=== PATIENT | female | born 1980 | race Caucasian/White ===

== ENCOUNTER → 2020-07-31 09:15 | Outpatient (CLI) | payer OTHER, SELFPAY ==
--- NOTE | ~2020-07-31 | US_ITS ---
EXAMINATION: US pelvic complete DATE: 07/31/2020 09:46 INDICATION: Menometrorrhagia TECHNIQUE: Multiple transabdominal and endovaginal sonographic images of the pelvis were obtained. COMPARISON: None. FINDINGS: The uterus measures 9.8 x 4.8 x 5.9 cm. The endometrial complex measures 9 mm. The right ov faustino measures 2.1 x 3.0 x 2.6 cm. The left ovary measures 1.6 x 1.6 x 2.2 cm. There is normal vascular flow in the ovaries. There is no free fluid in the pelvis. IMPRESSION: 1. No sonographic correlate for the patient's symptoms. Reviewed, dictated and finalized at location A. RING PADS SUPERVISOR
== END ==
PROVIDERS: Visit Provider Nurse Practitioner
DX: N92.0 Excessive and frequent menstruation with regular cycle (principal)
CPT/HCPCS: 76856

== ENCOUNTER → 2020-12-17 06:40 | Outpatient (CLI) | payer OTHER, SELFPAY ==
[2020-12-17 19:22] LABS: SARS-CoV-2 RNA PCR Negative
== END ==
PROVIDERS: Visit Provider Obstetrics & Gynecology Gynecology
DX: Z01.812 Encounter for preprocedural laboratory examination (principal); Z20.822 Contact with and (suspected) exposure to COVID-19
CPT/HCPCS: C9803; U0003; U0005

== ENCOUNTER 2020-12-20 00:13 | Day surgery (SDC) | payer OTHER, SELFPAY ==
[2020-12-09 15:20] VITALS: BMI 27.3
--- NOTE | 2020-12-20 07:19 | PM.HPGS ---
History of Present Illness History of Present Illness Consent: Risks, benefits, and alternatives have been discussed and questions answered. Patient agrees to proceed with procedure. Chief complaint: menorrhaghia Narrative: Glenda Myers is a 40 year old female with new onset over the past year of heavy cycles. Patient states she uses super plus tampons and changes approximately every 2 hours for 24 hours per month. Patient underwent attempt at hysteroscopy in the office, however, the cervix was stenotic and unable to be entered. Patient is rescheduled for the operating room and has been given Cytotec for the prior 5 days. Risks of the procedure including infection, bleeding, and perforation are discussed with the patient. In addition possible pathology is reviewed. Patient voices understanding and agrees to proceed. Review of Systems Review of Systems: Narrative: not repeated day of surgery; patient states no changes in status Constitutional: Constitutional: Reports other (fatigue) Neurologic: Reports headache(s) PMFSH Past Medical History Medical History (Updated 12/20/20 @ 07:25 by Krystin Rendon MD) Asthma Surgical History Surgical History (Updated 12/20/20 @ 07:23 by Krystin Rendon MD) History of section, low transverse x 3 History of umbilical hernia repair x 2 Family History Family History (Updated 01/05/15 @ 11:02 by DOCTOR UNKNOWN) Grandparent Malignant neoplasm of prostate Diabetes mellitus Other Family history of arthritis Social History Social History Smoking status: Never smoker Alcohol intake: current Drinks per week: 2 Substance use: never Substance use type: does not use Living arrangements: with family Spiritual care concerns: No Meds Home Medications and Allergies Home Medications Medication Instructions Recorded Confirmed Type albuterol 90 mcg INHALATION Q6H PRN 12/09/20 12/09/20 History cefuroxime axetil [Ceftin] 500 mg PO BID 12/09/20 12/09/20 History ergocalciferol (vitamin D2) 1,250 mcg PO WEEKLY 12/09/20 12/09/20 History misoprostol 1,000 mcg PO DAILY 12/09/20 12/09/20 History multivitamin 1 tablet PO DAILY 12/09/20 12/09/20 History vitamin L16-[id number] acid 1 tablet PO DAILY 12/09/20 12/09/20 History Allergies Allergy/AdvReac Type Severity Reaction Status Date / Time chlorpheniramine AdvReac Nausea and Verified 12/09/20 15:36 [From Deconamine] Vomiting fexofenadine [From Ashly-D] AdvReac Nausea and Verified 12/09/20 15:36 Vomiting pseudoephedrine AdvReac Nausea and Verified 12/09/20 15:36 [From Ashly-D] Vomiting Exam Const: General: comfortable and no acute distress : External Female Exam: normal external appearance Speculum Exam - Vagina: normal appearance of the vagina Speculum Exam - Cervix: normal appearance of the cervix and Other cervical findings present (cervix stenotic) Bimanual exam- vagina & uterus: enlarged (8-10 wks) Bimanual Exam- Adnexa, other: normal adnexae Assessment and Plan Assessment and plan (1) Menorrhagia: Code(s): N92.0 - Excessive and frequent menstruation with regular cycle Status: Acute Assessment and Plan: Plan to proceed with hysteroscopy with D&C
--- NOTE | 2020-12-20 07:25 | WPDHPUPDATE1 ---
History and Physical Update Update Date/Time: 12/20/20 07:25 History and Physical has been reviewed, including an updated exam of the patient. There are NO changes in the patient's condition. Risks, benefits, and alternatives have been discussed and questions answered. Patient agrees to proceed with procedure.
[2020-12-20] MEDS: ACETAMINOPHEN 500 MG TABLET 1000 MG PO (07:50)
--- NOTE | 2020-12-20 07:53 | WPDANESEPPF ---
Anes - Initial Pre Proc Eval Procedure: Operation Date: 12/20/20 09:30 Proposed Procedures p Hysteroscopy, Dilation and Curettage - Krystin Rendon MD Date/Time: 12/20/20 07:53 Surgeon: Krystin Rendon MD Pre Op Diagnosis: menorrhaghia Patient Data Age: 40 Gender: F Height: 1.57 m Weight: 68 kg Allergies Allergy/AdvReac Type Severity Reaction Status Date / Time chlorpheniramine AdvReac Nausea and Verified 12/20/20 07:36 [From Deconamine] Vomiting fexofenadine [From Ashly-D] AdvReac Nausea and Verified 12/20/20 07:36 Vomiting pseudoephedrine AdvReac Nausea and Verified 12/20/20 07:36 [From Ashly-D] Vomiting Home Medications Medication Instructions Recorded Confirmed Type albuterol 90 mcg INHALATION Q6H PRN 12/09/20 12/20/20 History cefuroxime axetil [Ceftin] 500 mg PO BID 12/09/20 12/20/20 History ergocalciferol (vitamin D2) 1,250 mcg PO WEEKLY 12/09/20 12/20/20 History misoprostol 1,000 mcg PO DAILY 12/09/20 12/20/20 History multivitamin 1 tablet PO DAILY 12/09/20 12/20/20 History vitamin Z40-[id number] acid 1 tablet PO DAILY 12/09/20 12/20/20 History Patient hx anesthesia problems: none Family hx anesthesia problems: none PMFSH Past Medical History Medical History (Updated 12/20/20 @ 07:54 by Ambrose Lozano DO) Asthma PONV (postoperative nausea and vomiting) Surgical History Surgical History (Updated 12/20/20 @ 07:54 by Ambrose Lozano DO) History of section, low transverse x 3 History of tubal ligation History of umbilical hernia repair x 2 Family History Family History (Updated 01/05/15 @ 11:02 by DOCTOR UNKNOWN) Grandparent Malignant neoplasm of prostate Diabetes mellitus Other Family history of arthritis Social History Social History Smoking status: Never smoker Alcohol intake: current Drinks per week: 2 Substance use: never Substance use type: does not use Living arrangements: with family Spiritual care concerns: No Anes - Eval Final PreProcedure Day of Procedure 12/20/20 07:53 Patient weight: overweight Heart: regular rate and rhythm Lungs: clear to auscultation and normal air movement Airway: Mallampati scale class 1 Neurological: alert and oriented Last oral intake: >/= 8 hours ASA classification: II Emergent: no Anesthetic plan: proceed Anesthesia type and monitoring: general GIVS and standard monitoring Informed Consent: The patient's anesthetic plan and its attendant risks and benefits were discussed with the patient/family/POA. Questions were solicited and answers provided to the satisfaction of the patient/family/POA.
[2020-12-20 07:57] VITALS: BP 107/65; PULSE 64; RESP 16; TEMP 36.6; O2SAT 100; BMI 27.0
[2020-12-20] MEDS: LACTATED RINGERS 1,000 ML 30 ML IV CONT (08:15)
--- NOTE | 2020-12-20 09:28 | PM.PROC ---
Procedure Note - Detailed Date of procedure: 12/20/20 Pre-op diagnosis: menorrhaghia Cervical stenosis Post-op diagnosis: same Procedure performed: Hysteroscopy D&C Description of procedure: The patient was taken to the operating room placed under anesthesia in the dorsal lithotomy position. She was prepped and draped in the usual sterile fashion. [place] speculum was placed in the vagina and the cervix is grasped on the anterior lip with a tenaculum. The cervix was injected with 1% lidocaine in each quadrant. The sound is attempted to be placed and stops at 5cm. The os Finders are used to open the internal os. The cervix was then serially dilated with Hegars and the uterus sounds to 9cm. The diagnostic hysteroscope was placed with no abnormalities noted. The medium sharp curette is used to sharply curette the endometrium until a good uterine cry was noted in all areas. Sponge, needle, and instrument counts are correct per the OR staff. All instruments are removed and the patient is taken to recovery in stable condition. Anesthesia: MAC and local Surgeon: Krystin Rendon MD Estimated blood loss (mL): 5 Drains: No Packing: No Pathology: yes (endometrial curettings) Complications: No immediate complications Condition: stable Disposition: PACU Findings: Stenotic internal cervical os; grossly normal-appearing endometrium; uterus sounds to 9cm
[2020-12-20 09:32] VITALS: BP 103/62; PULSE 76; RESP 16; O2SAT 100
[2020-12-20] MEDS: KETOROLAC 30 MG/ML VIAL (*BKC) IV PUSH (09:42)
[2020-12-20 10:00] VITALS: BP 122/73; PULSE 60; RESP 16
[2020-12-20 10:30] VITALS: BP 124/75; PULSE 57; RESP 20
== END 2020-12-20 10:40 | disposition home or self-care (01) ==
PROVIDERS: Visit Provider Obstetrics & Gynecology Gynecology
PROC: 0U5B8ZZ Destruction of Endometrium, Via Natural or Artificial Opening Endoscopic (ICD-10-PCS; CPT 58563; principal; 2020-12-20 09:30)
DX: N92.0 Excessive and frequent menstruation with regular cycle (principal); N88.2 Stricture and stenosis of cervix uteri; J45.909 Unspecified asthma, uncomplicated; Z79.51 Long term (current) use of inhaled steroids
CPT/HCPCS: 58558; 88305; A9270; C9803; J1885; J2250; J2704; J3010; J7030; J7120; U0003; U0005

== ENCOUNTER → 2021-04-25 15:04 | Outpatient (CLI) | payer OTHER, SELFPAY ==
--- NOTE | ~2021-04-25 | MM_ITS ---
EXAMINATION: MM screening yusra BI w david HISTORY: Screening TECHNIQUE: Craniocaudal and mediolateral oblique 3-D tomosynthesis images were obtained and synthetic 2-D images were generated. CAD analysis was submitted and interpreted. COMPARISON: No prior mammogram is available for comparison at this institution. BREAST PARENCHYMAL COMPOSITION: The breasts are extremely dense, which lowers the sensitivity of mamm ography. FINDINGS: There are asymmetries in the lower outer quadrant of the right breast. There are no suspici ous masses, calcifications or architectural distortion in the left breast to suggest malignancy. IMPRESSION: 1. Right breast asymmetries, lower outer quadrant. 2. Additional mammographic views and possible breast ultrasound are recommended. BI-RADS Category 0: Incomplete: Needs additional imaging evaluation. Reviewed, dictated and finalized at location A. IMPRESSION: 1. Right breast asymmetries, lower outer quadrant. 2. Additional mammographic views and possible breast ultrasound are recommended . BI-RADS Category 0: Incomplete: Needs additional imaging evaluation.
== END ==
PROVIDERS: Visit Provider Nurse Practitioner
DX: Z12.31 Encounter for screening mammogram for malignant neoplasm of breast (principal); R92.8 Other abnormal and inconclusive findings on diagnostic imaging of breast
CPT/HCPCS: 77063; 77067

== ENCOUNTER → 2021-06-09 09:00 | Outpatient (CLI) | payer OTHER, SELFPAY ==
--- NOTE | ~2021-06-09 | MMUS_ITS ---
EXAMINATION: MM diagnostic yusra RT w david, US breast RT complete HISTORY: Right breast asymmetries reported on 04/25/2021 screening mammogram TECHNIQUE: Additional 3-D tomosynthesis images of the right breast were performed and synthetic 2-D i mages were generated. CAD analysis was submitted and interpreted. High resolution complete right guilher[address] st ultrasound was performed, including all 4 quadrants and subareolar area of. COMPARISON: 04/25/2021 bilateral screening mammogram FINDINGS: MAMMOGRAPHIC FINDINGS: 7 mm circumscribed mass is suggested at mid to posterior depth in the inner aspect of the mid medial right breast (ML spot Tomosynthesis image 37/59, MLO Tomosynthesis image 36/62). Otherwise no suspici ous mass, architectural distortion, malignant calcification, skin thickening or retraction is evident . ULTRASOUND: No suspicious mass or solid lesion is detected. 4:00 4 cm from nipple: 1.8 x 3.2 mm cyst 6:00 6 cm from nipple: 2.7 x 5 mm simple cyst with through transmission and posterior enhancement and 3.8 x 1.4 mm simple cyst 9:00 7 cm from nipple: 7 x 5.6 x 9.4 mm sonolucency with through transmission posterior enhancement c onsistent with simple cyst 9:00 6 cm from nipple: Circumscribed 5 x 3.4 mm sonolucency with through transmission posterior enhan cement consistent with cyst 10:00 7 cm from nipple: 4.6 x 3.3 cm circumscribed hypoechoic lesion with through transmission crime scene specialist ior enhancement, consistent with cyst IMPRESSION: 1. Benign findings; no mammographic evidence of malignancy 2. Routine annual mammographic screening is recommended BI-RADS Category 2: Benign finding(s). Reviewed, dictated and finalized at location A. ALE SECURITY OFFICER IMPRESSION: 1. Benign findings; no mammographic evidence of malignancy 2. Routine annual mammographic screening is recommended BI-RADS Category 2: Benign finding(s).
== END ==
PROVIDERS: Visit Provider Obstetrics & Gynecology Gynecology
DX: R92.8 Other abnormal and inconclusive findings on diagnostic imaging of breast (principal)
CPT/HCPCS: 76641; 77061; 77065; G0279

== ENCOUNTER → 2022-06-09 10:08 | Outpatient (CLI) | payer OTHER, SELFPAY ==
--- NOTE | ~2022-06-09 | MM_ITS ---
EXAMINATION: MM screening yusra BI w david HISTORY: Screening mammogram TECHNIQUE: Craniocaudal and mediolateral oblique 3-D tomosynthesis images were obtained and synthetic 2-D images were generated. CAD analysis was submitted and interpreted. COMPARISON: 06/09/2021 diagnostic right mammogram and right breast ultrasound 04/25/2021 bilateral screening mammogram BREAST PARENCHYMAL COMPOSITION: The breasts are heterogeneously dense, which may obscure small masses . FINDINGS: Possible new bilateral breast masses are suggested. IMPRESSION: 1. Possible new breast masses 2. Diagnostic bilateral mammogram and bilateral breast ultrasound examination are recommended BI-RADS Category 0: Incomplete: Needs additional imaging evaluation. Reviewed, dictated and finalized at location A. ECTIONS OFFICER IMPRESSION: 1. Possible new breast masses 2. Diagnostic bilateral mammogram and bilateral breast ultrasound examination a re recommended BI-RADS Category 0: Incomplete: Needs additional imaging evaluation.
== END ==
PROVIDERS: PCP Obstetrics & Gynecology Gynecology; Visit Provider Obstetrics & Gynecology Gynecology
DX: Z12.31 Encounter for screening mammogram for malignant neoplasm of breast (principal); R92.8 Other abnormal and inconclusive findings on diagnostic imaging of breast
CPT/HCPCS: 77063; 77067

== ENCOUNTER → 2022-07-03 09:24 | Outpatient (CLI) | payer OTHER, SELFPAY ==
--- NOTE | ~2022-07-03 | MMUS_ITS ---
EXAMINATION: MM diagnostic yusra BI w david, US breast BI limited HISTORY: Possible bilateral breast masses on screening mammogram TECHNIQUE: Additional 3-D tomosynthesis images of the breasts were performed and synthetic 2-D images were generated. CAD analysis was submitted and interpreted. High resolution limited bilateral breast ultrasound was performed. COMPARISON: 06/09/2022, 06/09/2021, 04/25/2021 FINDINGS: MAMMOGRAPHIC FINDINGS: Left breast: An asymmetry persists in the posterior third outer breast on the craniocaudal view with spot compression. Right breast: There is a return to baseline fibroglandular appearance with spot compression of the ri ght breast in the area questioned on screening mammogram. ULTRASOUND: Left breast: There is a 5 mm oval, hypoechoic, circumscribed mass with no posterior features or inter nal vascularity at the 11:00 location 6 cm from the nipple. There is a 13 mm x 4 mm circumscribed, ov al complex cystic and solid mass with posterior acoustic enhancement and no internal vascularity at t he 11:00 location 6 cm from the nipple. Right breast: There is a 7 mm x 3 mm oval, circumscribed, parallel, complex cystic and solid mass at the 4:00 location 5 cm from the nipple with no posterior features or internal vascularity. There is a 4 mm x 3 mm oval, circumscribed, parallel, hypoechoic mass with no posterior features or internal va scularity at the 6:00 location near the nipple. IMPRESSION: 1. Probably benign bilateral breast masses. 2. Recommend 6 month follow-up bilateral diagnostic mammogram and ultrasound. BI-RADS category 3, probably benign findings. Reviewed, dictated and finalized at location A. OPERATIONS CONTROLLER IMPRESSION: 1. Probably benign bilateral breast masses. 2. Recommend 6 month follow-up bilateral diagnostic mammogram and ultrasound. BI-RADS category 3, probably benign findings.
== END ==
PROVIDERS: PCP Obstetrics & Gynecology Gynecology; Visit Provider Obstetrics & Gynecology Gynecology
DX: R92.8 Other abnormal and inconclusive findings on diagnostic imaging of breast (principal)
CPT/HCPCS: 76642; 77062; 77066; G0279

== ENCOUNTER → 2023-01-01 09:31 | Outpatient (CLI) | payer OTHER, SELFPAY ==
--- NOTE | ~2023-01-01 | MMUS_ITS ---
EXAMINATION: MM diagnostic yusra BI w david, US breast BI complete HISTORY: Follow-up probable benign bilateral breast masses. TECHNIQUE: Additional 3-D tomosynthesis images of the breasts were performed and synthetic 2-D images were generated. CAD analysis was submitted and interpreted. High resolution complete bilateral breas t ultrasound was performed. COMPARISON: Comparison to multiple prior studies sequentially, with oldest reviewed study dated 04/25. BREAST PARENCHYMAL COMPOSITION: The breasts are heterogeneously dense, which may obscure small masses FINDINGS: MAMMOGRAPHIC FINDINGS: Bilateral breast asymmetries and calcifications are stable compared with prior examinations allowing for differences of technique. There are benign layering left breast calcifications superiorly, consis tent with milk of calcium. ULTRASOUND: Complete bilateral US of all 4 quadrants of the breasts and retroareolar region was reviewed. Right breast: There are multiple simple and complicated cysts of the both breasts. In the right breas t at 1-2:00, 4 cm from the nipple there is a 6 mm oval hypoechoic mass with internal echogenic hilum, possibly intramammary lymph node. There is an adjacent simple cyst. Left breast: At 12:00, 4 cm from the nipple there is a lobulated hypoechoic mass with parallel orient ation, coarse internal echotexture, no significant posterior features and no internal vascularity han suring 9 x 6 x 9 mm. This was not seen on prior examination. At 3:00, 5 cm from the nipple there is a n oval hypoechoic mass with low level internal echoes measuring 7 x 5 x 7 mm without internal vascula rity or posterior features. There are internal echogenic foci, possibly calcifications. There are mul tiple simple and complicated cysts of the left breast. At 5:00, 5 cm from the nipple there is a 9 mm oval hypoechoic mass with low level internal echoes, no posterior features and no internal vascularit y, likely complicated cysts. There are multiple clusters of cysts in the left breast. IMPRESSION: 1. Abnormal masses of the left breast at 12:00, 4 cm from the nipple measuring 9 mm and 3:00, 5 cm fr om the nipple measuring 7 mm. Ultrasound-guided left breast biopsies recommended. BI-RADS Category 4. 2. Probable benign bilateral breast masses identified by ultrasound. Six-month follow-up diagnostic b ilateral mammogram and ultrasound recommended. Reviewed, dictated and finalized at location A. IMPRESSION: 1. Abnormal masses of the left breast at 12:00, 4 cm from the nipple measuring 9 mm and 3:00, 5 cm from the nipple measuring 7 mm. Ultrasound-guided left guilherme st biopsies recommended. BI-RADS Category 4. 2. Probable benign bilateral breast masses identified by ultrasound. Six-month follow-up diagnostic bilateral mammogram and ultrasound recommended.
== END ==
PROVIDERS: PCP Obstetrics & Gynecology Gynecology; Visit Provider Obstetrics & Gynecology Gynecology
DX: N63.10 Unspecified lump in the right breast, unspecified quadrant (principal); N63.20 Unspecified lump in the left breast, unspecified quadrant; R92.8 Other abnormal and inconclusive findings on diagnostic imaging of breast
CPT/HCPCS: 76641; 77062; 77066; G0279

== ENCOUNTER 2024-12-29 01:17 | Day surgery (SDC) | payer OTHER, SELFPAY ==
[2024-12-23 13:56] VITALS: BMI 29.0
--- NOTE | 2024-12-23 14:03 | PC.NURSE ---
Report to the Outpatient Waiting Room, entrance under the green pavilion located off [facility], at time _0830 on date _12/29/24__. Planned Procedure Time: _1030_.? Time changes happen often and if your time is changed the preop area will call you the afternoon before. - You and your visitor will be asked to self-screen and do not enter if you have any COVID symptoms. Please call surgeon if you need to reschedule. - A mask is optional within the hospital at this time. Patients may have clear liquids (water, carbonated beverages, clear teas, apple juice) until 3 hours prior to surgery with a maximum of 20 ounces. - No food from midnight until time of surgery and no smoking, or chewing tobacco (or any form of nicotine). No chewing gum, candy or mints. - Infants may have breast milk until 4 hours before surgery, infant formula 6 hours prior to surgery. - Children will be allowed to drink immediately following surgery.? If applicable, please bring a bottle or sippy cup to assist with drinking. Juice, water, soda, and popsicles are readily available.? For infants on formula, please bring formula the day of surgery.? Pacifiers are allowed. Take only the following medications with a SIP of water on the morning of surgery: NONE DO NOT STOP ANY OF YOUR OTHER PRESCRIPTION MEDICATIONS PRIOR TO SURGERY EXCEPT THE FOLLOWING Hold all vitamins and supplements for 3 days per anesthesiologist. Medications to discontinue per physician Date to take last dose Please no make-up, nail german, hairspray, perfume, deodorant, or body powder the day of surgery.? No jewelry (including any body piercings) or valuables the day of surgery, leave them at home.? Please take a shower or bath the night before, or the morning of, surgery with an antibacterial soap.? Wear comfortable, loose fitting clothing.? Children are encouraged to wear pajamas. - Jewelry must be removed prior to entering the operating room.? Rings and piercings that are not removed may be cut off. - The hospital will not accept responsibility for valuables.? - Please leave all valuables, including medications, at home the day of surgery. If you are going home after surgery, a licensed commercial truck driver must drive you home.? - NO public transportation without another adult if you receive anesthesia. - We recommend that an adult stay with you for 24 hours following discharge. - We also recommend that you do not drive, make important decision, drink alcoholic beverages, or take any drugs that were not prescribed by your health care provider for at least 24 hours after your discharge time. For Pediatric surgeries, we recommend two adults accompany the child home. Follow any additional instructions given to you from your surgeon. Telephone instructions given to NADIRand asked if any additional questions and then verbalized understanding. Patient advised to call surgeon office or pre surgery nurse liaison [phone] if any additional questions.
--- OUTSIDE RECORDS SUMMARY | 2024-12-29 01:21 | XMS_ITS | Referral Summary ---
Author Organization [address] Address [address] [place] [id number] Care Team Providers Care Burner Shaft Name Role Phone Delroy Lambert MD Primary Care Provider [phone] Krystin Rendon MD Unavailable [phone] Allergies Active Allergy Reactions Criticality Noted Date Comments Fexofenadine Vomiting Low 08/11/2018 Amoxicillin-Pot Clavulanate Vomiting Low 03/01/20 22 Medications FA/mv,Ca,iron,mi n/lycopene/lut (MULTIVITAL ORAL) Take by mouth Active azelaic acid 15 % gel APPLY TO TO THE AFFECTED AREA OF FACE EVERY DAY 2 Active FLUoxetine 10 mg capsule Take 1 tablet/capsule (10 mg total) by mouth daily 4 Active oxyBUTYnin (DITROPAN) 5 mg tablet Take 1 tablet (5 mg total) by mouth daily 4 Active triamcinolone (KENALOG) 0.1 % creamIndications :Contact dermatitis due to plant Apply topically 3 (three) times a day for 10 days 80 g 4 Active albuterol HFA (PROVENTIL HFA,VENTOLIN HFA,PROAIR HFA) 90 mcg/actuation inhalerIndicatio ns:Mild intermittent asthma with acute exacerbation INHALE 2 PUFFS BY MOUTH EVERY 6 HOURS NEEDED FOR WHEEZING 20.1 g 4 Active montelukast (SINGULAIR) 10 mg tablet Take 1 tablet (10 mg total) by mouth nightly 30 tablet 1 4 Active inhalational spacing device (Aerochamber Plus Z Stat) spacer 1 Application every 6 (six) hours Use as directed 1 each 5 Active fluticasone propionate (FLONASE) 50 mcg/actuation nasal spray Administer 2 sprays into each nostril daily 3 each 4 5 Active fluticasone propion-salmeter oL (ADVAIR DISKUS) 100-50 mcg/dose diskus inhaler INHALE 1 PUFF BY MOUTH TWICE DAILY. RINSE MOUTH WITH WATER AFTER USE. 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): 5 days of severe abdominal pain and diarrhea; 09/16-09/21 Negative stool culture and Cdiff screen Symptoms have resolved Follow up if symptoms return Patient verbalized understanding Mild intermittent asthma with acute exacerbation 01/02/2023 Assessment & Plan (01/14/2024 4:21 PM CDT): Well controlled, occasionally use of albuterol and spring; no other need for medications Assessment & Plan (01/02/2023 4:05 PM CDT): Stable, well controlled; few episodes, most related to allergies and exposure to pollens and allergens Continue albuterol 2 puffs b.i.d., loratadine 10 mg daily Dyslipidemia 01/02/2023 Assessment & Plan (01/14/2024 4:21 PM CDT): Stable, well controlled; focusing on dietary changes, increasing fiber of diet Assessment & Plan (01/02/2023 4:06 PM CDT): Family history of elevated cholesterol levels and mother brother; father has stent in place Patient had blood work from outside source; demonstrating borderline high LDL cholesterol Discussed with patient no need for statin therapy at this time, but would recommend continue dietary changes, including addition of soluble fibers to help lower cholesterol levels Will continue to monitor, and re-evaluate risk determine patient benefit from statin therapy in future Immunizations Immunization Administration Dates Next Due Influenza, Quadrivalent, Heather l Culture-based MDCK, Antibiotic Free, Intramuscular 05/12/2019 Influenza, Quadrivalent, Heather l Culture-based MDCK, Preservative Free, Antibiotic Free, Intramuscular 06/04/2022 Influenza, Quadrivalent, Spl it, Preservative Free, Intramuscular 09/28/2023,06/10/2021 Influenza, Trivalent, IM (MDV) 06/08/2014,2012,06/14/2013 Influenza, Trivalent, Preser vative Free, Intramuscular 08/05/2016,08/15/2012 Influenza, Unspecified 05/12/2024(Deferr ed: Patient Refused),05/07/2023(Deferred: Patient Refused) Pneumococcal Conjugate Pcv20 09/28/2023 Tdap 06/18/2013 Social History Tobacco Use Types Packs/Day Years Used Date Smoking Tobacco: Never Smokeless Tobacco: Never Tobacco Cessation:Counseling Given: Not Answered [facility] [employer]ities Answer Date Recorded In the past 12 months has e [employer], oil, or water [employer] threatened to shut off services in your home? No 09/28/2023 Humiliation, Afraid, Rape, and Kick questionnair e Answer Date Recorded Within the last year, have y ou been afraid of your partner or ex-partner? No 09/28/2023 Within the last year, have y ou been humiliated or emotionally abused in other ways by your partner or ex-partner? No Within the last year, have y ou been kicked, hit, slapped, or otherwise physically hurt by your partner or ex-partner? No 09/28/2023 Within the last year, have y ou been raped or forced to have any kind of sexual activity by your partner or ex-partner? No 09/28/2023 Social Connection and Isolat ion Panel [NHANES] Answer Date Recorded In a typical week, how many times do you talk on the phone with family, friends, or neighbors? More than three times a week 09/28/2023 How often do you get togethe r with friends or relatives? More than three times a week 09/28/2023 How often do you attend chur ch or yarsani services? Never 09/28/2023 Do you belong to any clubs o r organizations such as muslim groups, unions, fraternal or athletic groups, or school groups? Yes 09/28/2023 How often do you attend meet ings of the clubs or organizations you belong to? Never 09/28/2023 Are you , , di vorced, , never , or living with a partner? 09/28/2023 AUDIT-C Answer Date Recorded Q1: How often do you have a drink containing alc ohol? 2-4 times a month 09/28/2023 Q2: How many drinks containi ng alcohol do you have on a typical day when you are drinking? 3 or 4 09/28/2023 Q3: How often do you have si x or more drinks on one occasion? Less than monthly 09/28/2023 Overall Financial Resource Strain (CARDIA) Answe r Date Recorded How hard is it for you to pa y for the very basics like food, housing, medical care, and heating? Not hard at all 09/28/2023 PHQ-2 Answer Date Recorded PHQ-2 Total Score (If total score is 3 or more points, staff should administer the PHQ-9) 0 09/28/2023 [facility] - Occupational Stress Questionnaire Answer Date Recorded Do you feel stress - tense, restless, nervous, or anxious, or unable to sleep at night because your mind is troubled all the time - these days? To some extent 09/28/2023 Exercise Vital Sign Answer Date Recorde d On average, how many days pe r week do you engage in moderate to strenuous exercise (like a brisk walk)? 5 days 09/28/2023 On average, how many minutes do you engage in exercise at this level? 60 min 09/28/2023 Hunger Vital Sign Answer Date Recorded Within the past 12 months, y ou worried that your food would run out before you got the money to buy more. Never true 09/28/19 24 Within the past 12 months, t he food you bought just didn't last and you didn't have money to get more. Never true 09/28/2023 PRAPARE - Transportation Answer Date Re corded In the past 12 months, has l ack of transportation kept you from medical appointments or from getting medications? No 07/2023 In the past 12 months, has l ack of transportation kept you from meetings, work, or from getting things needed for daily living? No 09/28/2023 Housing Stability Vital Sign Answer Ralf e Recorded In the last 12 months, was t here a time when you were not able to pay the mortgage or rent on time? No 09/28/2023 In the last 12 months, how many places have you lived? 1 09/28/2023 In the last 12 months, was t here a time when you did not have a steady place to sleep or slept in a [place] [facility] [place] (including now)? No 09/28/2023 Personal Safety Answer Date Recorded Have you ever been in or are you currently in a harmful physical or emotional relationship or is someone making you feel afraid or unsafe? Denies 09/17/2023 Comments No Sex and Gender Information Value Date Recorded Sex Assigned at Not on file Legal Sex Female 5:24 PM HEEL PAINTER Gender Identity Not on file Sexual Orientation Not on file Last Filed Vital Signs Vital Sign Reading Time Taken Comments Blood Pressure 114/66 09/22/2024 3:39 PM HEEL PAINTER Pulse 75 09/22/2024 3:39 PM HEEL PAINTER Temperature 36.4 C (97.6 F) 09/22/2024 3:39 PM HEEL PAINTER Respiratory Rate 18 09/22/2024 3:39 PM HEEL PAINTER Oxygen Saturation 99% 09/22/2024 3:39 PM HEEL PAINTER Inhaled Oxygen Concentration - - Weight 72.1 kg (159 lb) 09/22/2024 3:39 PM HEEL PAINTER Height 157.5 cm (5' 2) 09/22/2024 3:39 PM HEEL PAINTER Body Mass Index 29.08 09/22/2024 3:39 PM HEEL PAINTER Plan of Treatment Not on file Procedures Procedure Name Priority Date/Time Associated Diagnosis Comments DIAGNOSTIC MAMMOGRAM BILATERAL W GIRISH Schedule Routine, Read Routine (OP Routine) 03/07/2024 2:52 PM CDT Abnormal mammogram Mass of left breast, unspecified quadrant HEPATITIS C ANTIBODY Routine 01/03/2024 10:41 AM CDT Encounter for hepatitis C screening test for low risk patient PAP SMEAR Routine 10/10/2022 from Last 3 Months or Most Recently Relevant to Health Maintenance Results * Diagnostic Mammogram Bilateral W Girish (03/07/2024 2:52 PM CDT) Anatomical Region Laterality Modality Breast Bilateral Mammography 03/07/2024 3:54 PM CDT Impressions 03/07/2024 3:54 PM CDT 1. Stable probably benign cluster of cysts in the left breast at the 12 o'clock position 4 cm from the nipple. Recommend follow-up ultrasound in 12 months at which the patient will be due for their annual mammogram. 2. No new suspicious mammographic abnormality in either breast. These findings were discussed with the patient by Dr. Lupillo Jennings and Dr. Krystin Coombs. OVERALL FINAL ASSESSMENT: BI-RADS Category 3: Probably Benign. RECOMMENDATION: Recommend follow-up diagnostic breast imaging in 12 months with left breast ultrasound at which time the patient will be due for their annual mammogram. Dictated by: Lupillo Jennings MD The radiology attending physician has personally reviewed this study, and had reviewed and/or edited this written report and agrees with it. Electronically signed by: Krystin Coombs M.D. Narrative 03/07/2024 3:54 PM CDT EXAMINATION: BILATERAL DIGITAL DIAGNOSTIC MAMMOGRAM INCLUDING CAD AND BILATERAL DIGITAL BREAST TOMOSYNTHESIS; LEFT BREAST SONOGRAM HISTORY: 44-year-old woman who presents for 12 month follow-up of a category 3 mass in the left breast at the 12 o'clock position. COMPARISON: Prior left breast ultrasound 08/10/2023 and outside hospital left breast ultrasound 01/16/2023. Several prior mammograms, most recently 01/01/2023, dating back to 06/09/2021. TECHNIQUE: Full field digital mammographic views of BOTH breasts were performed, including computer aided detection (CAD) and BILATERAL digital breast tomosynthesis (DBT). Directed ultrasound evaluation of the LEFT breast was performed. BREAST PARENCHYMAL COMPOSITION: The breasts are heterogeneously dense, which may obscure small masses. MAMMOGRAM FINDINGS: There is no new suspicious abnormality in either breast. SONOGRAM FINDINGS: Targeted sonogram was performed at the 12 o'clock position of the left breast 4 cm from nipple. This revealed a stable anechoic to hypoechoic mass with measuring 1.3 x 1.0 x 0.5 cm, possibly representing a cluster of cysts. This is stable in size compared to prior study when accounting for differences in measurement technique. There is no internal vascularity. There is a stable small cyst anteriorly. Procedure Note Krystin Coombs MD - 03/07/2024 EXAMINATION: BILATERAL DIGITAL DIAGNOSTIC MAMMOGRAM INCLUDING CAD AND BILATERAL DIGITAL BREAST TOMOSYNTHESIS; LEFT BREAST SONOGRAM HISTORY: 44-year-old woman who presents for 12 month follow-up of a category 3 mass in the left breast at the 12 o'clock position. COMPARISON: Prior left breast ultrasound 08/10/2023 and outside hospital left breast ultrasound 01/16/2023. Several prior mammograms, most recently 01/01/2023, dating back to 06/09/2021. TECHNIQUE: Full field digital mammographic views of BOTH breasts were performed, including computer aided detection (CAD) and BILATERAL digital breast tomosynthesis (DBT). Directed ultrasound evaluation of the LEFT breast was performed. BREAST PARENCHYMAL COMPOSITION: The breasts are heterogeneously dense, which may obscure small masses. MAMMOGRAM FINDINGS: There is no new suspicious abnormality in either breast. SONOGRAM FINDINGS: Targeted sonogram was performed at the 12 o'clock position of the left breast 4 cm from nipple. This revealed a stable anechoic to hypoechoic mass with measuring 1.3 x 1.0 x 0.5 cm, possibly representing a cluster of cysts. This is stable in size compared to prior study when accounting for differences in measurement technique. There is no internal vascularity. There is a stable small cyst anteriorly. IMPRESSION: 1. Stable probably benign cluster of cysts in the left breast at the 12 o'clock position 4 cm from the nipple. Recommend follow-up ultrasound in 12 months at which the patient will be due for their annual mammogram. 2. No new suspicious mammographic abnormality in either breast. These findings were discussed with the patient by Dr. Lupillo Jennings and Dr. Krystin Coombs. OVERALL FINAL ASSESSMENT: BI-RADS Category 3: Probably Benign. RECOMMENDATION: Recommend follow-up diagnostic breast imaging in 12 months with left breast ultrasound at which time the patient will be due for their annual mammogram. Dictated by: Lupillo Jennings MD The radiology attending physician has personally reviewed this study, and had reviewed and/or edited this written report and agrees with it. Electronically signed by: Krystin Coombs M.D. Laura Wagoner NP IMG MAMMO PROCEDURES Final Result * Hepatitis C antibody Blood (01/03/2024 10:41 AM CDT) Hep C Ab Nonreactive Nonreactive Comment: Interpretive Data Nonreactive: Antibodies to HCV not detected. Does NOT exclude the possibility of recent exposure to HCV. Equivocal: Equivocal for HCV antibodies. Supplemental molecular testing will be automatically performed to determine infection status in accordance with current CDC screening recommendations. Reactive: Positive for HCV antibodies. This may represent current or past HCV infection. Supplemental molecular testing will be automatically performed to determine current infection status in accordance with current CDC screening recommendations. Interpretive data was last revised on 2019. Testing performed by: [facility], [address] [place] [address]., [id number] Blood 01/03/2024 10:4 1 AM CDT 01/03/2024 5:46 PM CDT Delroy Lambert MD LAB MICROBIOLOGY - GENERA L ORDERABLES Final Result Performing Organization Address City/State/RUST Co de Phone Number [facility] [place] [facility] Department of Laboratories [place], [place] [id number] * Pap Smear (10/10/2022) 10/10/2022 Historical Provider LAB PATHOLOGY ORDERABLES Final Result from Last 3 Months or Most Recently Relevant to Health Maintenance Insurance [employer] CHOICE PLUS [facility] HMO/PPO Address: [address] [place] [address] [facility]/PP[facility] Address: [address] [address] [place] [address] [facility]/PP[facility] Address: [address] [address] [place] [id number] Care Teams Burner Shaft Relationship Specialty Start Date End Date Delroy Lambert MD [address] [place] [address] PCP - General Family Medicine 01/02/23 Krystin Rendon MD [address] [address] Referring Physician Gynecology 01/03/23
--- OUTSIDE RECORDS SUMMARY | 2024-12-29 01:21 | XMS_ITS | Clinical Summary ---
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): 5 days of severe abdominal pain and [...] Refused) Pneumococcal Conjugate Pcv20 09/28/2023 Tdap 06/18/2013 Surgical History Surgery Date Site/Laterality Comments SECTION BUNIONECTOMY HERNIA REPAIR umbilical hernia repair Medical History Medical History Date Comments Asthma Allergic Family History Medical History Relation Name Comments Hyperlipidemia Brother Hypertension Brother Coronary artery disease Father sten t placed 2022 Prostate cancer Maternal Grandfather Hyperlipidemia Mother Diabetes Paternal Grandmother Hyperlipidemia Paternal Grandmother Hypertension Paternal Grandmother Relation Name Status Comments Brother Father Maternal Grandfather Mother Paternal Grandmother Social History Tobacco Use Types Packs/Day Years Used Date Smoking Tobacco: Never Smokeless Tobacco: Never Tobacco Cessation:Counseling Given: Not Answered [facility] Utilities Answer Date Recorded In the past 12 months has e [employer], oil, or water [employer] threatened to shut off services in your [...] often do you attend chur ch or jain services? Never 09/28/2023 Do you belong to any clubs o r organizations such as denominational groups, unions, fraternal or athletic groups, or [...] staff should administer the PHQ-9) 0 09/28/2023 [facility] - Occupational Stress Questionnaire Answer Date Recorded [...] place to sleep or slept in a alf (including now)? No 09/28/2023 Personal Safety Answer Date Recorded Have you ever been in or are you currently in a harmful physical or emotional relationship or is someone making you feel afraid or unsafe? 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 Gender Identity Not on file Sexual Orientation Not on file Obstetrics History Last Filed Vital Signs Vital Sign Reading Time Taken Comments Blood Pressure 114/66 09/22/2024 3:39 PM DOPE AND FABRIC WORKER Pulse 75 09/22/2024 3:39 PM DOPE AND FABRIC WORKER Temperature 36.4 C (97.6 F) 09/22/2024 3:39 PM DOPE AND FABRIC WORKER Respiratory Rate 18 09/22/2024 3:39 PM DOPE AND FABRIC WORKER Oxygen Saturation 99% 09/22/2024 3:39 PM DOPE AND FABRIC WORKER Inhaled Oxygen Concentration - - Weight 72.1 kg (159 lb) 09/22/2024 3:39 PM DOPE AND FABRIC WORKER Height 157.5 cm (5' 2) 09/22/2024 3:39 PM DOPE AND FABRIC WORKER Body Mass Index 29.08 09/22/2024 3:39 PM DOPE AND FABRIC WORKER Plan of Treatment Health Maintenance Due Date Last Done Comments DTaP/Tdap/Td Vaccine (2 - Td or Tdap) 06/18/2023 06/18/2013 Cervical Cancer Screening 10/11/2023 10/10/2022 Covid-19 Vaccine ( season) 2024 02/01/2022, 10/02/2020, 09/04/2020 Depression Screening 09/27/2024 09/28/2023, 09/28/2023, 01/02/2023 Regular Well Visit/Exam 18-64 01/02/2025 01/03/2024, 01/02/2023 Breast Cancer Screening-Mammogram 03/07/2025 03/07/2024 Influenza Vaccine (Season Ended) 2025 09/28/2023, 06/04/2022, 06/10/2021, Additional history exists Pneumococcal vaccine <65 Completed 09/28/2023 Hepatitis B Screening Completed 01/03/2024 Hepatitis C Screening Completed 01/03/2024 HPV Vaccines Aged Out No longer eligi ble based on patient's age to complete this topic Varicella Vaccines Discontinued Procedures Procedure Name Priority Date/Time Associated Diagnosis [...] last revised on 2019. Testing performed by: [facility], [address] [place] [address]., [id number] Blood 01/03/2024 10:4 1 AM CDT 01/03/2024 5:46 PM CDT Delroy Lambert MD LAB MICROBIOLOGY - GENERA L ORDERABLES Final Result [facility] 1 [facility] Department [place] [address] * Pap Smear (10/10/2022) 10/10/2022 Historical Provider LAB PATHOLOGY ORDERABLES Final Result from Last 3 Months or Most Recently Relevant to Health Maintenance [place] [address] [facility] CHOICE PLUS [facility] CHOICE PLUS [facility] CHOICE PLUS Care Teams Purchasing Internship Relationship Specialty Start Date End Date Delroy Lambert MD [address] [place] [address] PCP - General Family Medicine 01/02/23 Krystin Rendon MD [address] [place] [address] Referring Physician Gynecology 01/03/23
--- NOTE | 2024-12-29 07:41 | WPDHPUPDATE1 ---
History and Physical Update Update Date/Time: 12/29/24 07:41 History and Physical has been reviewed, including an updated exam of the patient. There are NO changes in the patient's condition. Risks, benefits, and alternatives have been discussed and questions answered. Patient agrees to proceed with procedure.
--- NOTE | 2024-12-29 07:42 | PM.HPGS ---
History of Present Illness History of Present Illness Consent: Risks, benefits, and alternatives have been discussed and questions answered. Patient agrees to proceed with procedure. Chief complaint: menorrhagia Narrative: Glenda Myers is a 44 year old female with a history of abnormal bleeding in 2020. Patient had been under good control with oral contraceptives. She stopped her oral contraceptives in December of 2023. Cycles have been proceeding Monet getting worse. She was not using 7 to 8 super plus tampons per day. It was recommended to repeat the D&C hysteroscopy for pathology. Risks of infection, bleeding, perforation, and possible pathology are discussed. Patient voices understanding and agrees to proceed. Review of Systems Review of Systems: not repeated day of surgery; patient states no changes in status [facility] Past Medical History Medical History (Updated 12/20/20 @ 07:54 by Ambrose Lozano DO) PONV (postoperative nausea and vomiting) Asthma Surgical History Surgical History (Updated 12/29/24 @ 07:43 by Krystin Rendon MD) History of hysteroscopy 2020 benign History of tubal ligation History of umbilical hernia repair x 2 History of section, low transverse x 3 Family History Family History (Updated 01/05/15 @ 11:02 by DOCTOR UNKNOWN) Grandparent Malignant neoplasm of prostate Diabetes mellitus Other Family history of arthritis Social History Social History Smoking status: Never smoker Alcohol intake: current Drinks per week: 2 Substance use: never Substance use type: does not use Living arrangements: with family Spiritual care concerns: No Meds Home Medications and Allergies Home Medications ?Medication ?Instructions ?Recorded ?Confirmed ?Type albuterol 90 mcg/actuation aerosol 90 mcg inhalation Q6H PRN 12/09/20 12/23/24 History inhaler Bronchospasm ergocalciferol (vitamin D2) 1,250 1,250 mcg PO .2XMONTH 12/09/20 12/23/24 History mcg (50,000 unit) capsule multivitamin 1 tablet PO DAILY 12/09/20 12/23/24 History fluoxetine 10 mg capsule (Prozac) 10 mg PO HS 12/23/24 12/23/24 History oxybutynin chloride 5 mg tablet 2.5 mg PO HS 12/23/24 12/23/24 History Allergies Allergy/AdvReac Type Severity Reaction Status Date / Time chlorpheniramine (From AdvReac Nausea and Verified 12/23/24 13:52 Deconamine) Vomiting fexofenadine (From Ashly-D) AdvReac Nausea and Verified 12/23/24 13:52 Vomiting pseudoephedrine (From AdvReac Nausea and Verified 12/23/24 13:52 Ashly-D) Vomiting Exam Const: General: healthy appearing and alert Orientation/consciousness: patient oriented x3 Resp: Effort & Inspection: normal respiratory effort Auscultation: clear to auscultation bilaterally Cardio: Rate: regular rate Rhythm: regular rhythm GI: GI Palp: Yes Soft to palpation, No Tenderness to palpation present (GI) and No Palpable mass present : External Female Exam: normal external appearance Speculum Exam - Vagina: normal appearance of the vagina and normal vaginal discharge Speculum Exam - Cervix: normal appearance of the cervix Bimanual exam- vagina & uterus: uterine size normal and consistency normal Bimanual Exam- Adnexa, other: normal adnexae and No adnexal tenderness Neuro: General: patient oriented x3 Assessment and Plan Assessment and plan (1) Menorrhagia: Code(s): N92.0 - Excessive and frequent menstruation with regular cycle Status: Acute Assessment and Plan: Proceed with D&C hysteroscopy
[2024-12-29 09:30] VITALS: BP 125/83; PULSE 70; RESP 16; TEMP 36.7; O2SAT 100
[2024-12-29] MEDS: ACETAMINOPHEN 500 MG TABLET 1000 MG PO (09:30)
[2024-12-29] MEDS: LACTATED RINGERS 1,000 ML 30 ML IV CONT (09:30)
--- NOTE | 2024-12-29 09:34 | WPDANESEPPF ---
Anes - Initial Pre Proc Eval Procedure: Operation Date: 12/29/24 10:30 Proposed Procedures p Hysteroscopy, Dilation and Curettage - Krystin Rendon MD Date/Time: 12/29/24 09:34 Surgeon: Krystin Rendon MD Pre Op Diagnosis: menorrhagia Patient Data Age: 44 Gender: F Height: 1.57 m Weight: 72 kg Allergies Allergy/AdvReac Type Severity Reaction Status Date / Time chlorpheniramine (From AdvReac Nausea and Verified 12/23/24 13:52 Deconamine) Vomiting fexofenadine (From Ashly-D) AdvReac Nausea and Verified 12/23/24 13:52 Vomiting pseudoephedrine (From AdvReac Nausea and Verified 12/23/24 13:52 Ashly-D) Vomiting Home Medications ?Medication ?Instructions ?Recorded ?Confirmed ?Type albuterol 90 mcg/actuation aerosol 90 mcg inhalation Q6H PRN 12/09/20 12/23/24 History inhaler Bronchospasm ergocalciferol (vitamin D2) 1,250 1,250 mcg PO .2XMONTH 12/09/20 12/23/24 History mcg (50,000 unit) capsule multivitamin 1 tablet PO DAILY 12/09/20 12/23/24 History fluoxetine 10 mg capsule (Prozac) 10 mg PO HS 12/23/24 12/23/24 History oxybutynin chloride 5 mg tablet 2.5 mg PO HS 12/23/24 12/23/24 History Patient hx anesthesia problems: none Family hx anesthesia problems: none Results Review: All pre-operative results and documents have been reviewed as part of the pre-operative evaluation. [facility] Past Medical History Medical History PONV (postoperative nausea and vomiting) Asthma Surgical History Surgical History History of hysteroscopy 2020 benign History of tubal ligation History of umbilical hernia repair x 2 History of section, low transverse x 3 Family History Family History Grandparent Malignant neoplasm of prostate Diabetes mellitus Other Family history of arthritis Social History Social History Smoking status: Never smoker Alcohol intake: current Drinks per week: 2 Substance use: never Substance use type: does not use Living arrangements: with family Spiritual care concerns: No Anes - Eval Final PreProcedure Day of Procedure 12/29/24 09:34 Patient weight: overweight Heart: regular rate and rhythm Lungs: clear to auscultation Airway: Mallampati scale class II Neurological: alert and oriented Last oral intake: >/= 8 hours ASA classification: II Emergent: no Anesthetic plan: proceed Anesthesia type and monitoring: general GIVS and standard monitoring Results Review: All pre-operative results and documents have been reviewed as part of the pre-operative evaluation. Informed Consent: The patient's anesthetic plan and its attendant risks and benefits were discussed with the patient/family/POA. Questions were solicited and answers provided to the satisfaction of the patient/family/POA.
[2024-12-29 09:49] LABS: BEDSIDEPREGUCG Negative (Negative)
--- NOTE | 2024-12-29 10:29 | S_PTH ---
PATIENT: Glenda Myers LOC: [facility]#:[id number] AGE/SX: 44/F ROOM: RE12/29/[address]: Krystin Rendon MD : 1980 BED: DIS: 12/29/2024 SPEC #: [id number] RECD: 12/29/24 13:17 STATUS: ELIS REStuart #: [id number] GUEVARA: 12/29/24 10:[address]: Krystin Rendon DEPT: [facility] Surgical RECD BY: Yadi Obregon ENTERED: 12/29/24 13:18 SP TYPE: Surgical OTHR DR: Delroy Lambert, Tissues: A - Endometrial Curettings Procedures: Hematoxylin and Eosin Stain Gross and Microscopic Level 4
--- NOTE | 2024-12-29 10:38 | W.PM.PROC2 ---
Procedure Note - Detailed Date of Procedure 12/29/24 Pre-op Diagnosis menorrhagia Post-op Diagnosis Same Procedure Performed D&C hysteroscopy Surgeon Krystin Rendon MD Anesthesia MAC Findings Nulliparous cervix stenotic at 4cm. Uterus sounds to 8cm. Endometrium appears grossly normal. Description of Procedure The patient was taken to the operating room and placed under anesthesia in the dorsal lithotomy position. She was prepped and draped in the usual sterile fashion. [place] speculum was placed in the vagina and the cervix grasped on the anterior lip with a tenaculum. The uterus is sounded to 4cm and stenosis is encountered. The small dilator was used and unable to pass the internal os. The os Finders were used and the internal os was able to be passed. The uterus was then sounded to 8cm. The diagnostic hysteroscope was attempted to be placed and internal stenosis at 4cm was again encountered. The cervix is serially dilated to a 5 Hegar with no difficulty. The hysteroscope was then able to be placed. With the above-stated findings being normal the hysteroscope was removed. The sharp curette was used to curette the endometrium until a good uterine cry was noted in all areas. All instruments are removed. Sponge, needle, and instrument counts are correct per the OR staff. The patient is taken to recovery in stable condition. Estimated Blood Loss 5 Drains No Packing No Pathology Yes (Endometrial curettings) Complications No immediate complications Condition Stable Disposition PACU
[2024-12-29 10:40] VITALS: BP 93/64; PULSE 79; RESP 18; O2SAT 97
[2024-12-29 11:05] VITALS: BP 101/57; PULSE 75; RESP 18; O2SAT 99
[2024-12-29 11:30] VITALS: BP 102/72; PULSE 56; RESP 14
== END 2024-12-29 11:41 | disposition home or self-care (01) ==
PROVIDERS: PCP Hospitalist; Visit Provider Obstetrics & Gynecology Gynecology
PROC: 0U5B8ZZ Destruction of Endometrium, Via Natural or Artificial Opening Endoscopic (ICD-10-PCS; CPT 58563; principal; 2024-12-29 10:30)
DX: N92.0 Excessive and frequent menstruation with regular cycle (principal)
CPT/HCPCS: 58558; 88305; A9270; J2003; J2250; J2704; J3010; J7120